=== PATIENT | male | born 1995 | race Caucasian/White ===

== ENCOUNTER 2025-01-03 18:50 | Emergency (ER) | payer OTHER, SELFPAY ==
[2025-01-03] VITALS (8 sets, daily range): BP systolic 137–166; BP diastolic 81–113; PULSE 84–108; RESP 16–22; TEMP 36.4–37.1; O2SAT 88–100
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
[2025-01-03] MEDS: MORPHINE SULFATE (*CRX) 4 MG/ML INJ IM (19:09)
--- NOTE | 2025-01-03 19:40 | PC.NURSE ---
Pt and his mother updated on results, They want transfer to [facility] system. Calls will be made for transfer.
[2025-01-03] MEDS: MORPHINE SULFATE (*CRX) 4 MG/ML INJ IV PUSH ×3 (20:03→22:10)
--- NOTE | 2025-01-03 21:00 | PC.NURSE ---
Pt resting, continuing to give prn pain meds as ordered for pts pain. Informed on decision to not transfer and give sedation and reduce fx here and to have ankle CT scan done after procedure and will send to [facility]. POC discussed then for f/u in the office w/ ortho tomorrow. Pt agreeable to plan.
--- NOTE | 2025-01-03 22:30 | PC.NURSE ---
Pt resting w/ ice in place to ankle, pt being informed on POC for reducing fx and that ERP Dr Chapin will do procedure soon. VSS, continuing to monitor.
[2025-01-03] MEDS: KETAMINE HCL (*CRX) 500 MG/10 ML VIAL 125 MG IV PUSH (23:16)
[2025-01-04] VITALS: BP 156/100; PULSE 113; RESP 18; TEMP 36.8; O2SAT 99
--- NOTE | 2025-01-04 | PC.NURSE ---
Pt sipping on ice water, no c/o ortho splint in place on ankle
[2025-01-04 00:30] VITALS: BP 121/76; PULSE 90; RESP 20; TEMP 36.7; O2SAT 100
[2025-01-04 01:00] VITALS: BP 122/71; PULSE 79; RESP 18; TEMP 36.7; O2SAT 98
== END 2025-01-04 01:00 | disposition home or self-care (01) ==
PROVIDERS: Emergency Provider Family Medicine; PCP Physician Assistant
DX: S82.892A Other fracture of left lower leg, initial encounter for closed fracture (principal); X50.0XXA Overexertion from strenuous movement or load, initial encounter
CPT/HCPCS: 27788; 73610; 73630; 73700; 96374; 96375; 96376; 99285; J2270